=== PATIENT | male | born 1990 | race Caucasian/White ===

== ENCOUNTER 2016-03-07 23:11 | Emergency (ER) | payer OTHER ==
[~2016-03-07] VITALS: Ht 177.8 cm; Wt 79.4 kg
--- NOTE | ~2016-03-07 | EKG ---
[address] [address] ELECTROCARDIOGRAM REPORT Name: HALLE MOORE Room #: [facility]ENTERIsa[facility] [id number] Admission: 03/07/16 Attend Phys: Discharge: 03/08/16 Date of : 89 Report #: [id number] THIS REPORT FOR: //name// [facility] ED Test Date: 2016-03-07 Test Time: 23:16:28 Pat Name: HALLE MOORE Department: Room: Gender: M Manager Interventional: Mery MELO RN : 1990 Requested By: Guzman Mendez Order Number: [id number] MD: Chavo Hui Measurements Intervals [place] Rate: 116 P: 75 NM: 196 QRS: 67 QRSD: 81 T: -2 QT: 303 QTc: 421 Interpretive Statements Sinus tachycardia Borderline T abnormalities, inferior leads No previous ECG available for comparison Electronically Signed On 03-08-2016 8:07:10 [employer] by Chavo Hui [email or web address] <ELECTRONICALLY SIGNED> By: Chavo Hui MD 03/08/16 0807 D: 01/2315 15 Chavo Hui MD /ROLAND
[2016-03-07] MEDS ORDERED: ATIVAN0.5 MG PO (23:16)
[2016-03-08 00:34] LABS: ABSOLUTE NEUTROPHILS 2.9 thou/uL (1.4-8.2); BASOPHILS 0.6 % (0.0-2.0); EOSINOPHILS 1.6 % (0.0-3.0); HEMATOCRIT 46.9 % (42.0-52.0); HEMOGLOBIN 15.8 gm/dL (14.0-18.0); LYMPHOCYTES 27.5 % (24.0-44.0); MCH 27.7 pg (26.0-34.0); MCHC 33.6 % (28.0-37.0); MCV 82.5 fL (80.0-100.0); MONOCYTES 11.7 % (1.0-8.0); PLATELET COUNT 245 thou/uL (150-400); POLYS 58.6 % (36.0-66.0); RBC 5.69 mil/uL (4.50-6.00); RDW 11.8 % (10.5-14.5); WBC 4.9 thou/uL (4.0-11.0)
[2016-03-08 00:43] LABS: MANUAL DIFF NO
[2016-03-08 00:50] LABS: ANION GAP 10 mmol/L (7-16); BUN 12 mg/dL (7-18); CALCIUM 9.2 mg/dL (8.5-10.1); CHLORIDE 101 mmol/L (98-107); CO2 28 mmol/L (21-32); GLUCOSE 99 mg/dL (70-99); SODIUM 139 mmol/L (136-145)
[2016-03-08 00:55] LABS: AMP/METHAMP Negative (Negative); BARBITURATES Negative (Negative); BENZODIAZEPINES Negative (Negative); COCAINE Negative (Negative); METHADONE Negative (Negative); OPIATES Negative (Negative); PCP Negative (Negative); THC Negative (Negative)
[2016-03-08 00:55] LABS: ALBUMIN 4.5 g/dL (3.4-5.0); ALKALINE PHOSPHATASE 90 U/L (46-116); MAGNESIUM 1.8 mg/dL (1.8-2.4); SGOT 19 U/L (15-37); SGPT 27 U/L (30-65); TOTAL BILIRUBIN 0.3 mg/dL (<0.1-1.0); TOTAL PROTEIN 7.9 g/dL (6.4-8.2); TROPONIN-I < 0.04 ng/mL (<0.04-0.07)
[2016-03-08 00:59] VITALS: BP 138/95
[2016-03-08] MEDS ORDERED: ATIVAN1 MG PO (01:14)
== END 2016-03-08 01:37 | disposition home or self-care (01) ==
LOC: ER 23:11
PROVIDERS: Emergency Medicine
DX: F45.8 Other somatoform disorders (principal); R00.2 Palpitations; R00.0 Tachycardia, unspecified; F41.9 Anxiety disorder, unspecified